=== PATIENT | male | born 1955 | race African-American/Black ===

== ENCOUNTER 2023-11-29 14:57 | Emergency (ER) | payer MEDICARE, OTHER ==
[~2023-11-29] VITALS: Ht 175.3 cm; Wt 79.5 kg
[~2023-11-29 14:57] MED LIST: FLUC10SU2 PO
[2023-11-29 15:03] VITALS: BP 165/89; PULSE 86; RESP 16; TEMP 98.2
[2023-11-29] MEDS: PERMETHRIN 5% 60 GM CREAM TP ONE (17:32)
== END 2023-11-29 17:33 | disposition home or self-care (01) ==
LOC: EMS 15:06
DX: R20.2 Paresthesia of skin (principal); F17.210 Nicotine dependence, cigarettes, uncomplicated; F14.90 Cocaine use, unspecified, uncomplicated
CPT/HCPCS: 99282; Z7502; Z7610

== ENCOUNTER 2024-04-17 08:34 | Emergency (ER) | payer MEDICARE, OTHER ==
[~2024-04-17] VITALS: Ht 177.8 cm; Wt 72.7 kg
[~2024-04-17 08:34] MED LIST changes: -FLUC10SU2 PO; +PERM60CR19 TP
[2024-04-17 08:38] VITALS: TEMP 98
[2024-04-17 09:46] VITALS: BP 174/107; PULSE 89; RESP 20
[2024-04-17] MEDS: DiphenhydrAMINE HCL 50 MG/ML VIAL IM ONE (09:52)
[2024-04-17] MEDS ORDERED: IBUP-1554 PO (10:03)
[2024-04-17] MEDS ORDERED: CEPH-558 PO (10:03)
[2024-04-17] MEDS ORDERED: DIPH50CA37 PO (10:03)
[2024-04-17] MEDS ORDERED: HYDR30CR39 TP (10:03)
[2024-04-17] MEDS: IBUPROFEN 600 MG TABLET PO ONE (10:25)
[2024-04-17] MEDS: PERTUSS(ACELL),DIPH,TET/PF 0.5 ML SYRINGE [ADULT] IM. ONE (10:26)
== END 2024-04-17 10:32 | disposition home or self-care (01) ==
LOC: EMS 08:56
DX: L02.414 Cutaneous abscess of left upper limb (principal); L03.114 Cellulitis of left upper limb; L30.9 Dermatitis, unspecified; F15.10 Other stimulant abuse, uncomplicated; I10 Essential (primary) hypertension; F17.210 Nicotine dependence, cigarettes, uncomplicated
CPT/HCPCS: 99284; 10120; 90715; 90471; 96372; J1200

== ENCOUNTER 2024-06-10 19:51 | Emergency (ER) | payer MEDICARE, OTHER ==
[~2024-06-10] VITALS: Ht 177.8 cm; Wt 72.7 kg
[~2024-06-10 19:51] MED LIST changes: +CEPH-558 PO; +DIPH50CA37 PO; +HYDR30CR39 TP; +IBUP-1554 PO; -PERM60CR19 TP
[2024-06-10 19:58] VITALS: BP 143/98; PULSE 98; RESP 18; TEMP 98.8; O2SAT 98
[2024-06-10] MEDS ORDERED: SULF-261 PO (21:41)
[2024-06-10] MEDS: SULFAMETHOX/TRIMETH DS 800-160 MG/TABLET PO ONE (22:00)
[2024-06-10] MEDS: LIDOCAINE/PF 1% 2 ML VIAL IM ONE (22:01)
[2024-06-10] MEDS: CefTRIAXone SODIUM 1 GM/VIAL IM ONE (22:01)
== END 2024-06-10 22:49 | disposition home or self-care (01) ==
LOC: EMS 19:51
DX: L03.116 Cellulitis of left lower limb (principal); L03.115 Cellulitis of right lower limb; F17.210 Nicotine dependence, cigarettes, uncomplicated
CPT/HCPCS: 99283; 96372; J0696; J3490

== ENCOUNTER 2025-01-26 19:40 | Emergency (ER) | payer MEDICARE, OTHER ==
[~2025-01-26] VITALS: Ht 177.8 cm; Wt 75.0 kg
[~2025-01-26 19:40] MED LIST changes: +SULF-261 PO
[2025-01-26 19:49] VITALS: TEMP 98.4
[2025-01-26 21:49] VITALS: BP 167/90; PULSE 77; RESP 18; O2SAT 99
== END 2025-01-26 21:50 | disposition home or self-care (01) ==
LOC: EMS 19:40
DX: L73.9 Follicular disorder, unspecified (principal); F17.210 Nicotine dependence, cigarettes, uncomplicated; F10.90 Alcohol use, unspecified, uncomplicated; Y90.9 Presence of alcohol in blood, level not specified
CPT/HCPCS: 99281; Z7502

== ENCOUNTER 2025-04-13 06:06 | Emergency (ER) | payer MEDICARE, OTHER ==
[~2025-04-13] VITALS: Ht 177.8 cm; Wt 70.5 kg
[2025-04-13 06:09] VITALS: BP 160/99; PULSE 86; RESP 20; TEMP 97.9; O2SAT 98
[2025-04-13] MEDS ORDERED: DIPH-1243 PO (06:24)
== END 2025-04-13 06:52 | disposition home or self-care (01) ==
LOC: EMS 06:06
DX: L29.89 Other pruritus (principal); F17.210 Nicotine dependence, cigarettes, uncomplicated; Z98.890 Other specified postprocedural states; Z79.899 Other long term (current) drug therapy
CPT/HCPCS: 99282; Z7502

== ENCOUNTER 2025-08-04 03:42 | Emergency (ER) | payer MEDICARE, OTHER ==
[~2025-08-04] VITALS: Ht 177.8 cm; Wt 68.2 kg
[~2025-08-04 03:42] MED LIST changes: +DIPH-1243 PO; -SULF-261 PO; +SULF1TAB94 PO
[2025-08-04 03:51] VITALS: TEMP 97.9
[2025-08-04] MEDS ORDERED: HYDR30CR3 TP (07:11)
[2025-08-04] MEDS ORDERED: CETI10TA77 PO (07:11)
[2025-08-04 07:34] VITALS: BP 150/84; PULSE 82; RESP 18; O2SAT 99
== END 2025-08-04 07:41 | disposition home or self-care (01) ==
LOC: EMS 03:44
DX: L29.9 Pruritus, unspecified (principal); F17.210 Nicotine dependence, cigarettes, uncomplicated; F12.90 Cannabis use, unspecified, uncomplicated; Z98.890 Other specified postprocedural states
CPT/HCPCS: 99283